=== PATIENT | female | born 1970 ===

== ENCOUNTER 2017-10-10 19:21 | Emergency (ER) | payer OTHER ==
[~2017-10-10] VITALS: Ht 160 cm; Wt 66.2 kg
[~2017-10-10 19:21] MED LIST: AMOX1TAB5 PO; GILPHEX TR TAB1 EACH PO; MOTRIN800 MG PO; MYCOSTATIN100000 UNI PO; NAPR500T14 PO
[2017-10-10] MEDS ORDERED: ZOVIRAX400 M1 (19:53)
== END 2017-10-10 21:09 | disposition home or self-care (01) ==
LOC: ER 19:21
DX: K05.10 Chronic gingivitis, plaque induced (principal)

== ENCOUNTER 2018-02-08 17:54 | Emergency (ER) | payer OTHER ==
[~2018-02-08] VITALS: Ht 160 cm; Wt 70.3 kg
[~2018-02-08 17:54] MED LIST changes: +ZOVIRAX400 M1
[2018-02-08] MEDS ORDERED: PANADOL EXTRA500 MG (18:18)
== END 2018-02-08 21:41 | disposition home or self-care (01) ==
LOC: ER 17:54
DX: J40 Bronchitis, not specified as acute or chronic (principal)

== ENCOUNTER 2019-05-21 17:22 | Emergency (ER) | payer OTHER ==
[~2019-05-21] VITALS: Ht 160 cm; Wt 69.4 kg
[~2019-05-21 17:22] MED LIST changes: +PANADOL EXTRA500 MG
[2019-05-21] MEDS ORDERED: ULTRACET PO (20:12)
== END 2019-05-21 20:20 | disposition home or self-care (01) ==
LOC: ER 17:22
DX: J32.8 Other chronic sinusitis (principal)